=== PATIENT | female | born 1940 | race African-American/Black ===

== ENCOUNTER 2019-07-06 19:08 | Emergency (ER) | payer OTHER ==
--- NOTE | 2019-07-06 19:24 | PDOC ---
History of Present Illness - General Chief Complaint: Blood Pressure Problem Stated Complaint: HYPERTENSION Time Seen by Provider: 07/06/19 19:21 History Source: EMS, Family (Son), Senior Living Records, Old Records, Other ([facility] provider) Exam Limitations: Clinical Condition, Unresponsive - History of Present Illness Initial Comments: 07/06/19 19:21 PCP: Laz HPI: 79yo F pmh HTN, HLD, CKD (stage 3), L sided deficits and non-verbal s/p stroke, presenting from [place] with hypertension. Patient was seen at [facility] earlier today - presents with discharge paperwork indicating that she was given Hydralazine 10 mg IVP twice and Metoprolol 5mg IVP once for hypertension (discharged at ~2AM from their ED). She also underwent non-contrast wei scan with oral contrast yesterday evening while in [facility] ED with head CT noting: "1. Multifocal acute subarachnoid hemorrhage, with possible small subdural component. 2. Widening of the extra-axial space overlying the right cerebral hemisphere, suggesting subdural hydroma. 3. Hypodensity in the anterior corpus callosum, reflecting posttraumatic edema versus age indeterminant infarct. MRI examination coudl be obtained for further evaluation. Right rubi infarct, likely chronic." Per EMS report, she was sent in to [place] for hypertension (225/110 at [place]). She arrives with a BP 158/142. Patient has midline in RUE, limiting BP measurement to the RUE forearm. LUE is contracted with deficits from prior stro ke. She is nonverbal and provides no history herself. All: NKDA Meds: - Cozaar 50mg PO daily - Escitalopram Oxalate 20mg PM daily - Hydralazine 25mg PO Q12h - Metoprolol Succinate ER 100mg PO daily - Procardia XL 90mg daily - Sennosides 8.6 mg x2 PO qhs - Singulair 10mg PO daily - Trazodone HCl 50mg PO qhs PMH: - Essential HTN - Insomnia - Cognitive communication deficit - CKD Stage 3 - Osteoporosis - HLD - Cerebral infarct - Asthma - Dysphagia s/p stroke PSH: None in records Past History - Travel Traveled outside of the country in the last 30 days: No Close contact w/someone who was outside of country & ill: No - Past Medical History Allergies/Adverse Reactions: Allergies Allergy/AdvReac Type Severity Reaction Status Date / Time No Known Allergies Allergy Verified 07/06/19 20:13 Review of Systems - Review of Systems Able to Perform ROS?: No (clinical condition) *Physical Exam - Physical Exam 07/06/19 19:24 Vitals reviewed, BP 158/142, 99.5 rectal temp, tachycardia to 110-120s GEN: Elderly, chronically ill, L sided contracture, non-responsive, right sided gaze fixation. Wearing mask. AAOx3. HEENT: NCAT, PERRL, right sided gaze fixation - will not cross midline, Sclera anicteric, left eye with lateral laceration / hematoma. No facial asymmetry. Moist mucous membranes. Trachea midline. CV: RRR, S1/S2, no murmurs / rubs / gallops appreciated. LUNG: CTABL, normal work of breathing. Grunting. NC in place 2L, wearing mask. No wheezes, rales, rhonchi. No cough. GI: Soft, NTND, +BS, no guarding, no rebound. No masses. EXTREMITIES: 2+ distal pulses. No clubbing / cyanosis / edema. +contracted. SKIN: Warm, dry, no rashes appreciated, non-jaundiced. PSYCH: Not able to assess, no responses. NEURO: EOM as above. Fixed R gaze not crossing midline. Normal corneal reflex. Not interactive, not able to assess strength / CN. GCS 9 (E4/V1/M4) ED Treatment Course - LABORATORY CBC & Chemistry Diagram: 07/06/19 20:25 07/06/19 20:25 Medical Decision Making - Medical Decision Making 07/06/19 19:24 79yo F pmh HTN, HLD, CKD (stage 3), L sided deficits and non-verbal s/p stroke, presenting from [place] with hypertension in the setting of head trauma 07/04 with acute subarachnoid hemorrhage. 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 GCS 9 (E4/V1/M4), DDX: Most concerning for evolving ICH. - CBC, CMP, Cardiac Profile, UA, UCx- - CXR, EKG - 1L NS 07/06/19 19:54 - Generalized tonic clinic seizure lasting ~45 seconds - 2mg Ativan administered - Patient now hypertensive to 187/127 - BGM ordered - NCHCT - Keppra loading dose EK sinus, normal axis, QTc 478, LVH, no ST elevations 07/06/19 20:08 - Spoke with patient's son - sees her daily - Fell yesterday, head injury. Trying to go to restroom herself. Found down. Send to [facility]. - Paralyzed on the left side. Baseline "talks a lot but gets confused" - baseline knows her name. Did not talk when he visited today. - Patient normally has EOMI and can look around the room and track per son. - No history of seizures - Fall earlier this year with head injury --> rehabilitation, HTN since that time with multiple rehab and nursing admissions. Full Code HCP: Jelani Velasco [facility] [phone] 07/06/19 20:23 - Call placed to [facility] for additional information - Exam? Gaze fixed? Responsive? Decision to discharge? - Nurse answered, no physicians available, remembers the patient and said she was observed and discharged 07/06/19 20:30 - Neurosurgery consultation called Greg Gómez, message left - Cardizem 20 mg given IVP with pressure to 127/72, HR 96 - Sat 100% on 2L NC, RR 23 07/06/19 20:35 - Call placed to [place] - Transfer to [facility] initiated by Dr. Vega for suspected evolving SAH - Accepting physician at [facility] Dr. Benjamin with Neurology / Interventional - Patient will go to Adult ER, ETA pending, EMS collecting nurse from [facility] now - Labs pending - CXR without infiltrates 07/06/19 21:19 - Third call to [place] and Second to Neurosurgery with no response to either 07/06/19 21:26 - Spoke with son (HCP, PoA) who consents to [facility] transfer for MRI and interventional neuro as needed - Witnessed by nurse Tess Dawson 07/06/19 21:29 - Labs largely unremarkable mild leukocytosis - K 3.1, Cr 1.5 (baseline CKD) - Electrolytes otherwise wnl - UA dirty, without UTI Discharge - Discharge Information Problems reviewed: Yes Clinical Impression/Diagnosis: SAH (subarachnoid hemorrhage) Condition: Guarded Disposition: TRANSFER ACUTE CARE/OTHER HOSP - Admission No - Follow up/Referral - Patient Discharge Instructions - Post Discharge Activity - Transfer to Acute Care Facility Receiving Facility Name: [facility] Accepting Physician:: Dr. Benjamin (Neuro / Interventional)
[2019-07-06] MEDS ORDERED: SODIUM CHLORIDE 0.9% 500 ML INFUS.BAG IV ONE (19:38)
--- NOTE | 2019-07-06 19:38 | PDOC ---
Attending Attestation - Resident Resident Name: JonnyYannick guajardo - ED Attending Attestation I have performed the following: I have examined & evaluated the patient, The case was reviewed & discussed with the resident, I agree w/resident's findings & plan - HPI HPI: 07/06/19 20:12 Pt comes from the [place] as she was recently released from [facility], where she had bleeding in her brain. SAH, and other findings for which there was nohting t o be done, so she was sent to the [place] Today she comes to us for being non verbal; apparently pt was speaking earlier in the day. Pt also is thought to have coronavirus. Here on 02 2L NC, she has 100% O2sat. - Physicial Exam PE: 07/06/19 20:18 Pt is thin and cachectic. Pt has no fever. She is awake and seems restless; she is non verbal, and she is not following commands. Pt has small hematoma around the left eye Pt has S1S2 tachy rate, regular rhythm Lungs sound clear bilat no flank pain no rashes no pitting edema Unable to get a good neuro exam, as pt is not following commands - Medical Decision Making 07/06/19 20:40 I spoke to Janeen at [facility] ER, who recalls seeing the patient in the ER yesterday; due to the small bleed and relative insignificance, pt was observed and then discharged back to the [place]. However, [place] sends her back to the hospital for AMS. Pt had a seizure here, and we loaded her with Keppra. She had a CT scan yesterday at [facility] that showed multifocal SAH, small subdural hemorrhage 07/06/19 21:27 Pt will be transferred to [facility] ER, Dr. Benjamin for MRI and interventional neuro as needed. BP is currently 124/72 Heart Score/ECG Review - ECG Intrepretation Rhythm: Regular Rhythm - Marion Marion: Normal - P and CA Delta Wave(s) Present: No WPW: No - QRS Poor R Wave Progression: No Q Wave Present: No - ST and T Early Repolarization: No Non Specific ST-T Wave changes: No Flattened T Waves: No Prolonged Q-T Interval: No - ECG Impressions Normal ECG: Yes Non-specific ST Elevation: No Ischemic Changes: No Tachycardia: Sinus Discharge - Discharge Information Problems reviewed: Yes Clinical Impression/Diagnosis: SAH (subarachnoid hemorrhage) Condition: Guarded Disposition: TRANSFER ACUTE CARE/OTHER HOSP - Follow up/Referral - Patient Discharge Instructions - Post Discharge Activity
[2019-07-06] MEDS ORDERED: dilTIAZem HCL 50 MG/10 ML - 10 ML VIAL IVPUSH ONE (19:39)
[2019-07-06 19:42] VITALS: BMI 22.3
[2019-07-06] MEDS ORDERED: LORazepam 2 MG/ML SDV VIAL ONE (19:53)
[2019-07-06] MEDS ORDERED: levETIRAcetam 500 MG/5 ML INJECTION VIAL IVPB ONE (19:57)
[2019-07-06 20:18] VITALS: TEMP 99.5
[2019-07-06] MEDS ORDERED: dilTIAZem HCL 125 MG/25 ML - 25 ML VIAL ONE (20:51)
[2019-07-06 21:01] VITALS: BP 124/72
[2019-07-06 21:09] LABS: BASO % 0.2 % (0-2.0); HEMATOCRIT 33.4 % (32.4-45.2); HEMOGLOBIN 10.7 GM/dL (10.7-15.3); LYMPH % 2.9 % (8-40); MCH 25.6 pg (25.7-33.7); MCHC 31.9 g/dl (32.0-36.0); MEAN CELL VOLUME 80.2 fl (80-96); MEAN PLT VOLUME 9.1 fl (7.5-11.1); NEUT % 88.9 % (42.8-82.8); PLATELET COUNT 284 K/MM3 (134-434); RBC 4.17 M/mm3 (3.60-5.2); RDW 14.8 % (11.6-15.6); WHITE BLOOD COUNT 12.3 K/mm3 (4.0-10.0)
[2019-07-06 21:12] LABS: EPI CELLS >36 /uL (0-25.1); HYALINE CASTS 16 /uL (0-3.1); URINE APPEARANCE CLOUDY; URINE BACTERIA 55 /uL (0-1359); URINE BILIRUBIN NEGATIVE (NEGATIVE); URINE COLOR YELLOW; URINE GLUCOSE (UA) TRACE (NEGATIVE); URINE KETONE TRACE (NEGATIVE); URINE LEUK ESTERASE NEGATIVE (NEGATIVE); URINE NITRITE NEGATIVE (NEGATIVE); URINE PROTEIN 3+ (NEGATIVE); URINE RBC 98 /uL (0-23.9); URINE UROBILINOGEN 0.2 mg/dL (0.2-1.0); URINE WBC 16 /uL (0-25.8)
[2019-07-06 21:26] VITALS: PULSE 97
[2019-07-06 21:28] LABS: ALBUMIN 3.3 g/dl (3.4-5.0); BILIRUBIN,TOTAL 0.5 mg/dL (0.2-1); BLOOD UREA NITROGEN 21.8 mg/dL (7-18); CREATININE 1.5 mg/dL (0.55-1.3); POTASSIUM 3.1 mmol/L (3.5-5.1); TOT PROT 7.2 g/dl (6.4-8.2)
--- NOTE | 2019-07-08 14:50 | EKG ---
Test Reason : Blood Pressure : / mmHG Vent. Rate : 116 BPM Atrial Rate : 116 BPM P-R Int : 150 ms QRS Dur : 088 ms QT Int : 344 ms P-R-T Axes : 089 -24 109 degrees QTc Int : 478 ms SINUS TACHYCARDIA POSSIBLE LEFT ATRIAL ENLARGEMENT LEFT VENTRICULAR HYPERTROPHY ABNORMAL ECG WHEN COMPARED WITH ECG OF 04-JUN-1998 14:33, VENT. RATE HAS INCREASED Confirmed by URI ELAM MD ([id number]) on 07/08/2019 2:49:58 PM Referred By: Confirmed By:URI ELAM MD
== END 2019-07-06 21:47 | disposition short-term general hospital (02) ==
LOC: JER 19:08
PROC: 3E033GC Introduction of Other Therapeutic Substance into Peripheral Vein, Percutaneous Approach (ICD-10-PCS; principal; 2019-07-06)
DX: I60.9 Nontraumatic subarachnoid hemorrhage, unspecified (principal)
CPT/HCPCS: 36415; 71045-TC-FY; 80053; 81003; 82550; 84484; 85025; 87086; 93005; 93010; 96374; 96375; 99285-25